=== PATIENT | female | born 1985 ===

== ENCOUNTER 2021-07-24 08:51 | Day surgery (SDC) | payer MEDICAID ==
[~2021-07-24 08:51] MED LIST: ceFAZolin/Water 2 GM/20 ML 2 GM/20 ML SYRINGE IV NR
[2021-07-24] MEDS ORDERED: LACTATED RINGERS 1,000 ML ONE (09:32)
--- NOTE | 2021-07-24 09:41 | Anesthesia Day of Surgery ---
Anesthesia Day of Surgery - Day of Surgery Patient Examined: Yes Patient H&P Reviewed: Yes Patient is NPO: Yes
--- NOTE | 2021-07-24 09:42 | Anesthesia Consultation ---
Anesthesia Consult and Med Hx Date of service: 07/24/21 - Airway Anesthetic Teeth Evaluation: Good ROM Head & Neck: Adequate Mental/Hyoid Distance: Adequate Mallampati Class: Class I Intubation Access Assessment: Good - Pre-Operative Health Status ASA Pre-Surgery Classification: ASA2 Nerve Block: Macey (GA if needed) - Pulmonary Hx Smoking: No Hx Sleep Apnea: No ([facility] PRE SCREEN NEGATIVE) - Central Nervous System Hx Back Pain: Yes Hx Psychiatric Problems: Yes (Depression-no meds) - Gastrointestinal Hx Gastroesophageal Reflux Disease: No - Hematic Hx Anemia: No - Other Systems Hx Cancer: No Hx Obesity: Yes
[2021-07-24] MEDS ORDERED: ONDANSETRON 4 MG/2 ML INJ IV PRN (10:00)
[2021-07-24] MEDS ORDERED: MIDAZOLAM 2 MG/2 ML INJ IV NR (10:00)
[2021-07-24] MEDS ORDERED: LACTATED RINGERS 1,000 ML IV SCH (10:00)
[2021-07-24] MEDS ORDERED: HYDROmorphone 1 MG/1 ML INJ IV PRN ×2 (10:00)
[2021-07-24] MEDS ORDERED: fentaNYL 250 MCG/5 ML INJ ONE (12:41)
[2021-07-24] MEDS ORDERED: propofoL 200 MG/20 ML VIAL IV ONE (12:41)
[2021-07-24] MEDS ORDERED: LIDOCAINE 2%/EPINEPHRINE 1:200,000 VIAL (20 ML) INFILTRATI ONE (12:55)
[2021-07-24] MEDS ORDERED: NEOMY 40 MG/POLYMYXIN B 200,000 UNITS/ML (GU) AMPULE IR ONE (12:55)
[2021-07-24] MEDS ORDERED: MIDAZOLAM 2 MG/2 ML INJ ONE (13:09)
[2021-07-24] MEDS ORDERED: LIDOCAINE 2%/EPINEPHRINE 1:100,000 VIAL (20 ML) INFILTRATI ONE ×2 (13:29)
[2021-07-24] MEDS ORDERED: SODIUM CHLORIDE 0.9% IRR 1,500 ML BOTTLE IR ONE (13:40)
--- NOTE | 2021-07-24 14:46 | Operative Report ---
Operative Report Operative Report: OPERATIVE NOTE Preop diagnosis : 1. Synovial vs. mucoid cyst LEFT hand Postop diagnosis: 1. Dorsal Synovial / ganglion cyst (of tendon sheath) LEFT hand Procedure: 1. 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 S he was then brought to the operating room where she underwent a local block of the left wrist dorsal surface with approximately 9 cc of 2% lidocaine supplemented with IV conscious sedation as per anesthesia. She was placed in the supine position and all pressure points were well-padded. The left hand ,wrist and forearm were prepped and draped in the usual fashion with ChloraPrep solution. The extremity was then elevated, exsanguinated with an Esmarch bandage and the tourniquet was inflated to 250 mmHg. A timeout was then called by the circulating nurse and once again the correct site was identified. An Incision was made in line with the index finger over the dorsal carpus approximately 3.5 cm in length. The location of the cyst was distal to the radiocarpal joint overlying the second dorsal compartment in the carpus. Dissection was carried down through the fibrofatty layer and careful dissection was carried out to isolate the cyst. Care was taken to cauterize small bleeders with the Bovie. The cyst was circumferentially dissected and was excised from its base which appeared to be the tendon sheath for the second dorsal compartment. A small window of the synovial sheath for the second dorsal compartment was also accomplished as well as the underlying intercarpal synovium. Wound was then irrigated copiously with normal saline. Hemostasis was secured. The fascia was then closed with 2-0 Vicryl suture and the skin was reapproximated with individual sutures of 2-0 nylon sutures. Xeroform dressing was applied followed by a sterile compressive dressing which was secured with an Will wrap. The patient was then awakened and taken to recovery room in excellent condition. Estimated blood loss: Negligible . Replacement: See anesthesia record Drains : None Complications: None Tourniquet time: 22 minutes
[2021-07-24 15:02] VITALS: BP 124/84
--- NOTE | 2021-07-24 19:11 | Post Anesthesia Evaluation ---
- Post Anesthesia Evaluation Patient Participated: Yes Airway Patent: Yes Stable Respiratory Function: Yes Nausea/Vomiting: No Temp > 96.8F: Yes Pain Manageable: Yes Adequeate Hydration: Yes Anesthesia Complications: No Block Receding Appropriately: Not Applicable Patient on Ventilator: No
== END 2021-07-24 15:35 | disposition home or self-care (01) ==
LOC: OR 08:51
PROVIDERS: ATTEND Orthopaedic Surgery
DX: M67.442 Ganglion, left hand (principal); E66.9 Obesity, unspecified; F32.9 Major depressive disorder, single episode, unspecified; Z80.8 Family history of malignant neoplasm of other organs or systems; Z98.51 Tubal ligation status; Z68.33 Body mass index [BMI] 33.0-33.9, adult
CPT/HCPCS: 26160; 81025; 82962; 88304; J0690; J2250; J2704; J3010; J3490; J7120

== ENCOUNTER 2021-11-02 10:05 | Outpatient (CLI) | payer MEDICAID ==
[2021-11-02 12:16] LABS: Chol/HDL Ratio 3.25 %
== END 2021-11-02 10:06 | disposition home or self-care (01) ==
LOC: LABHHL 10:05
PROVIDERS: ATTEND Internal Medicine
DX: R73.03 Prediabetes (principal); E78.5 Hyperlipidemia, unspecified
CPT/HCPCS: 36415; 80061; 83036